=== PATIENT | female | born 1980 | race Caucasian/White ===

== ENCOUNTER 2019-10-12 08:15 | Inpatient (IN) | payer MEDICAID ==
[~2019-10-12] VITALS: Ht 154.9 cm; Wt 60.8 kg
[2019-10-12] MEDS ORDERED: PNV1TABL76 PO (09:04)
[2019-10-12] MEDS ORDERED: FERR325T6 PO (09:04)
[2019-10-12] MEDS ORDERED: CALC600T12 PO (09:04)
[2019-10-12] MEDS ORDERED: BUTORPHANOL TARTRATE 2 MG/ML VIAL IV PRN (09:15)
[2019-10-12] MEDS ORDERED: LIDOCAINE HCL 1% 20ML VIAL (Pyxis) INJ INFIL PRN (09:15)
[2019-10-12] MEDS ORDERED: NALOXONE HCL 0.4 MG/ML 1ML VIAL IM PRN (09:15)
[2019-10-12] MEDS ORDERED: CARBOPROST TROMETHAMINE 250 MCG/ML AMPUL IM PRN (09:15)
[2019-10-12] MEDS ORDERED: MISOPROSTOL 200MCG TABLET VG PRN (09:15)
[2019-10-12] MEDS ORDERED: METHYLERGONOVINE MALEATE 0.2 MG/ML IM PRN (09:15)
[2019-10-12] MEDS: LACTATED RINGERS 1,000 ML IV SCH ×4 (09:41→23:09)
[2019-10-12 09:55] LABS: BASOPHILS % 0.6 % (0.0-2.0); EOSINOPHILS % 0.8 % (0.0-5.0); HEMOGLOBIN. 13.8 g/dL (12.0-16.0); LYMPHOCYTES % 24.4 % (20.0-50.0); MEAN CORPUSCULAR VOLUME 93.8 fL (81.0-99.0); MEAN PLATELET VOLUME 12.8 fl (7.4-10.4); NEUTROPHILS % 61.2 % (40.0-76.0); PLATELET 125 x1000/uL (130-400); RED BLOOD CELL COUNT 4.06 mill/uL (4.2-5.4); RED CELL DISTRIBUTION WIDTH 14.2 % (11.6-14.6)
[2019-10-12 10:04] LABS: INR 0.9; PARTIAL THROMBOPLASTIN TIME 29.4 sec (23.4-31.0); PROTHROMBIN TIME 9.3 sec (9.6-11.0)
[2019-10-12 10:09] LABS: CLARITY URINE CLEAR (CLEAR); COLOR URINE YELLOW (YELLOW); KETONES URINE NEGATIVE (NEGATIVE); LEUKOCYTE ESTERASE URINE 1+ (NEGATIVE); NITRITE URINE NEGATIVE (NEGATIVE); OCCULT BLOOD URINE NEGATIVE (NEGATIVE); PROTEIN URINE NEGATIVE (NEGATIVE); SPECIFIC GRAVITY URINE 1.009 (1.005-1.030); UROBILINOGEN URINE 0.2 E.U./dL (0.2-1.0)
[2019-10-12 10:20] LABS: *AMPHETAMINES SCREEN URINE NEGATIVE (NEGATIVE); *BARBITURATES SCREEN URINE NEGATIVE (NEGATIVE); *BENZODIAZEPINES SCREEN URINE NEGATIVE (NEGATIVE); *COCAINE SCREEN URINE NEGATIVE (NEGATIVE); METHADONE URINE SCREEN NEGATIVE (NEGATIVE)
[2019-10-12 10:21] LABS: CANNABINOID URINE SCREEN NEGATIVE (NEGATIVE); OPIATES URINE SCREEN NEGATIVE (NEGATIVE); PHENCYCLIDINE URINE SCREEN NEGATIVE (NEGATIVE)
[2019-10-12] MEDS: DEXT 5%/LR + PITOCIN 20UNITS/L 1,000 ML IV SCH (11:09)
[2019-10-12] MEDS ORDERED: LIDOCAINE HCL 2%/EPINEPHRINE 1:100,000 20 ML VIAL INFIL ONE (12:06)
[2019-10-12 12:13] LABS: HEPATITIS B SURFACE ANTIGEN NEGATIVE
[2019-10-12] MEDS ORDERED: ROPIVACAINE HCL/PF EPIDURAL 200 ML EPI SCH (12:15)
[2019-10-13] MEDS: DEXT 5%/LR + PITOCIN 20UNITS/L 1,000 ML IV SCH ×2 (05:15→17:42)
[2019-10-13] MEDS: LACTATED RINGERS 1,000 ML IV SCH ×2 (06:43→13:12)
[2019-10-13] MEDS: ACETAMINOPHEN 325MG TABLET PO PRN ×3 (08:19→21:42)
[2019-10-13] MEDS ORDERED: LIDOCAINE HCL 2%/EPINEPHRINE 1:100,000 20 ML VIAL INFIL ONE (11:55)
[2019-10-13] MEDS ORDERED: ROPIVACAINE HCL/PF EPIDURAL 200 ML EPI ONE ×2 (13:12→23:13)
[2019-10-13] MEDS ORDERED: FENTANYL CITRATE/PF 50MCG/ML 2ML VIAL ONE ×3 (14:52→23:19)
[2019-10-13] MEDS: AMPICILLIN 2,000 MG in SODIUM CHLORIDE 0.9% 100 ML IV SCH (21:41)
[2019-10-13] MEDS ORDERED: LACTATED RINGERS 1,000 ML IV SCH (23:00)
[2019-10-13] MEDS ORDERED: LIDOCAINE HCL/PF 2% 20MG/ML 5 ML/VIAL ONE (23:21)
[2019-10-14] MEDS ORDERED: FENTANYL CITRATE/PF 50MCG/ML 2ML VIAL ONE ×3 (02:49→10:44)
[2019-10-14] MEDS: AMPICILLIN 2,000 MG in SODIUM CHLORIDE 0.9% 100 ML IV SCH (03:42)
[2019-10-14] MEDS ORDERED: CITRIC ACID/SODIUM CITRATE SOLN 30ML UDC PO NR (09:00)
[2019-10-14] MEDS ORDERED: ONDANSETRON HCL 4MG/2ML INJ ONE (09:25)
[2019-10-14] MEDS ORDERED: MORPHINE SULFATE/PF 1MG/ML 10ML AMP ONE (09:25)
[2019-10-14] MEDS ORDERED: CEFAZOLIN SODIUM 1000MG/VIAL ONE (09:25)
[2019-10-14] MEDS ORDERED: OXYTOCIN 10 UNITS/ML 1ML ONE (09:26)
[2019-10-14] MEDS ORDERED: MIDAZOLAM HCL 2 MG/2 ML VIAL ONE (10:28)
[2019-10-14] MEDS ORDERED: KETOROLAC 60MG/2ML VIAL IM ONE (10:42)
[2019-10-14] MEDS ORDERED: DIPHENHYDRAMINE 50MG/ML VIAL ONE (10:42)
[2019-10-14] MEDS ORDERED: NALOXONE HCL 0.4 MG/ML 1ML VIAL IV PRN (11:30)
[2019-10-14] MEDS ORDERED: BUTORPHANOL TARTRATE 2 MG/ML VIAL IV PRN (11:30)
[2019-10-14] MEDS ORDERED: DIPHENHYDRAMINE 50MG/ML VIAL IV PRN (11:30)
[2019-10-14] MEDS ORDERED: FUROSEMIDE 20MG/2ML VIAL IVP NR (12:00)
[2019-10-14] MEDS ORDERED: DEXT 5%/LR + PITOCIN 20UNITS/L 1,000 ML IV SCH (13:35)
[2019-10-14] MEDS ORDERED: LANOLIN OINT 7GM TUBE TOP PRN (13:45)
[2019-10-14] MEDS ORDERED: BISACODYL 10MG SUPP PR PRN (13:45)
[2019-10-14] MEDS ORDERED: IBUPROFEN 400MG TABLET PO PRN (13:45)
[2019-10-14] MEDS ORDERED: HEMORRHOIDAL SUPP PR PRN (13:45)
[2019-10-14] MEDS ORDERED: HYDROCODONE/ACETAMINOPHEN 5/325MG TABLET PO PRN (13:45)
[2019-10-14] MEDS ORDERED: ONDANSETRON HCL 4MG/2ML INJ IV PRN (13:45)
[2019-10-14 14:45] VITALS: BP 106/54
[2019-10-14 15:15] VITALS: BP 102/61
[2019-10-14 16:40] VITALS: BP 116/66
[2019-10-14] MEDS: KETOROLAC 30MG/ML VIAL IV SCH ×2 (18:06)
[2019-10-14] MEDS ORDERED: DOCUSATE SODIUM 100MG CAPSULE PO SCH (21:00)
[2019-10-14] MEDS: CEFAZOLIN 2,000 MG in DEXT 5% WATER 100 ML IV SCH (21:55)
[2019-10-14 22:00] VITALS: BP 102/61
[2019-10-15] VITALS: BP 98/55
[2019-10-15] MEDS: KETOROLAC 30MG/ML VIAL IV SCH (00:22)
[2019-10-15 04:00] VITALS: BP 95/65
[2019-10-15] MEDS: CEFAZOLIN 2,000 MG in DEXT 5% WATER 100 ML IV SCH (05:29)
[2019-10-15 08:00] VITALS: BP 114/74
[2019-10-15 08:30] LABS: BASOPHILS % 0.6 % (0.0-2.0); EOSINOPHILS % 0.5 % (0.0-5.0); HEMATOCRIT. 28.9 % (36.0-48.0); HEMOGLOBIN. 10.2 g/dL (12.0-16.0); LYMPHOCYTES % 17.1 % (20.0-50.0); MEAN CORPUSCULAR HEMOGLOBIN 33.4 pg (28.0-32.0); MEAN CORPUSCULAR VOLUME 94.6 fL (81.0-99.0); MEAN PLATELET VOLUME 12.3 fl (7.4-10.4); MONOCYTES % 11.3 % (2.0-8.0); NEUTROPHILS % 70.5 % (40.0-76.0); PLATELET 77 x1000/uL (130-400); RED BLOOD CELL COUNT 3.05 mill/uL (4.2-5.4); RED CELL DISTRIBUTION WIDTH 14.3 % (11.6-14.6)
[2019-10-15] MEDS: MAGNESIUM/ALUMINUM HYDROXIDE/SIMETHICONE 30ML UDC PO SCH ×3 (08:33→21:58)
[2019-10-15] MEDS: FERROUS SULFATE 325MG TABLET PO SCH ×2 (08:34→18:16)
[2019-10-15] MEDS: SIMETHICONE 80MG TABLET CHEW PO SCH ×3 (08:34→21:58)
[2019-10-15] MEDS: ACETAMINOPHEN WITH CODEINE 300/30MG TABLET PO PRN ×2 (10:27→18:31)
[2019-10-15 16:09] VITALS: BP 91/49
[2019-10-15 16:24] LABS: BASOPHILS % 0.3 % (0.0-2.0); EOSINOPHILS % 0.7 % (0.0-5.0); HEMATOCRIT. 28.9 % (36.0-48.0); HEMOGLOBIN. 10.6 g/dL (12.0-16.0); LYMPHOCYTES % 14.6 % (20.0-50.0); MEAN CORPUSCULAR HEMOGLOBIN 34.1 pg (28.0-32.0); MEAN CORPUSCULAR VOLUME 93.5 fL (81.0-99.0); MEAN PLATELET VOLUME 12.3 fl (7.4-10.4); MONOCYTES % 12.8 % (2.0-8.0); NEUTROPHILS % 71.6 % (40.0-76.0); PLATELET 89 x1000/uL (130-400); RED BLOOD CELL COUNT 3.09 mill/uL (4.2-5.4); RED CELL DISTRIBUTION WIDTH 14.4 % (11.6-14.6)
[2019-10-15 20:00] VITALS: BP 98/51
[2019-10-16] VITALS: BP 103/53
[2019-10-16] MEDS: ACETAMINOPHEN WITH CODEINE 300/30MG TABLET PO PRN ×2 (00:48→11:56)
[2019-10-16 04:00] VITALS: BP 101/57
[2019-10-16 11:56] VITALS: BP 101/57
== END 2019-10-16 12:15 | disposition home or self-care (01) | DRG 540 ==
LOC: 8 EST LDRP 08:15 → OBSVTOIN 08:15 → 8 EST LDRP 09:46 → 8EST 10-14 13:45
PROVIDERS: ADMIT Obstetrics & Gynecology; ATTEND Obstetrics & Gynecology
PROC: 10D00Z1 Extraction of Products of Conception, Low, Open Approach (ICD-10-PCS; principal; 2019-10-14)
DX: O33.9 Maternal care for disproportion, unspecified (principal); O61.9 Failed induction of labor, unspecified; Z37.0 Single live birth; Z3A.39 39 weeks gestation of pregnancy
CPT/HCPCS: 36415; 71045; 80305; 81003; 85025; 86592; 86703; 86762; 86850; 86900; 87340; 88307; J0290; J0595; J0690; J1200; J1885; J1940; J2250; J2274; J2405; J2590; J2795; J3010; J3490; J7050; J7060; J7120